=== PATIENT | female | born 1975 | race Caucasian/White ===

== ENCOUNTER → 2020-09-07 | Outpatient (CLI) | payer BC | LOC: RAD 17:42 | DX: M25.561 Pain in right knee (principal); R93.6 Abnormal findings on diagnostic imaging of limbs | CPT/HCPCS: 73564 ==

== ENCOUNTER → 2020-10-14 | Outpatient (CLI) | payer BC | LOC: KOH-I 16:00 | DX: S83.511A Sprain of anterior cruciate ligament of right knee, initial encounter (principal); S83.004A Unspecified dislocation of right patella, initial encounter | CPT/HCPCS: 73721 ==